=== PATIENT | female | born 1980 | race Caucasian/White ===

== ENCOUNTER 2019-04-27 15:25 | Emergency (ER) | payer OTHER ==
[~2019-04-27] VITALS: Ht 162.6 cm; Wt 75.0 kg
[~2019-04-27 15:25] MED LIST: BUSPAR5 MG PO; DEPO-PROVER150 MG/ML IM; IBUPROFEN600 MG PO; PERCOCET 5-3251 TAB PO
[2019-04-27 15:33] VITALS: Ht 162.6 cm; Wt 75.0 kg
[2019-04-27 17:19] LABS: BASOPHILS 0.1 % (0-2); HEMATOCRIT 39.9 % (36.0-48.0); HEMOGLOBIN 13.5 g/dL (12-16); IMMATURE GRANULOCYTES 0.2 % (0-5); LYMPHOCYTES 26.2 % (15-50); MCH 30.3 pg (26.0-34.0); MCHC 33.8 g/dL (31.0-37.0); MCV 89.5 fL (80.0-100.0); MEAN PLATELET VOLUME 10.5 fL (7.4-10.4); MONOCYTES 7.5 % (2-11); PLATELET COUNT 222 10x3/uL (130-400); RBC 4.46 10x6/uL (4.00-5.40); RDW 13.5 % (11.5-14.5); WBC 9.8 10x3/uL (4.8-10.8)
[2019-04-27 17:26] LABS: APPEARANCE CLEAR (CLEAR); BILIRUBIN NEGATIVE (NEGATIVE); COLOR YELLOW (YELLOW); GLUCOSE NEGATIVE (NEGATIVE); HCG URINE NEGATIVE (NEGATIVE); KETONE NEGATIVE (NEGATIVE); NITRITE NEGATIVE (NEGATIVE); PROTEIN NEGATIVE (NEGATIVE); SPECIFIC GRAVITY 1.025 (1.005-1.020); UROBILINOGEN NORMAL (NORMAL)
[2019-04-27 17:34] LABS: ALBUMIN 3.4 g/dL (3.4-5.0); ALKALINE PHOSPHATASE 74 U/L (46-116); ALT (SGPT) 19 U/L (10-68); BILIRUBIN - TOTAL 0.22 mg/dL (0.2-1.3); CALC OSMOLALITY 279 mosm/kg (275-300); CALCIUM 8.4 mg/dL (8.5-10.1); CARBON DIOXIDE 28.3 mmol/L (21.0-32.0); CHLORIDE - SERUM 105 mmol/L (98-107); CREATININE - SERUM 0.7 mg/dL (0.6-1.3); GLUCOSE 85 mg/dL (74-106); POTASSIUM - SERUM 3.8 mmol/L (3.5-5.1); PROTEIN - SERUM 6.6 g/dL (6.4-8.2); SODIUM 141 mmol/L (136-145); UREA NITROGEN 13 mg/dL (7-18); eGFR NON AFRICAN AMERICAN > 90 mL/min (90-120)
[2019-04-27] MEDS ORDERED: VOLTAREN75 MG PO (19:10)
[2019-04-27 19:48] VITALS: BP 128/96
== END 2019-04-27 21:28 | disposition home or self-care (01) ==
LOC: D.ER 15:25
PROVIDERS: Family Medicine
DX: N64.4 Mastodynia (principal)

== ENCOUNTER 2019-10-25 22:17 | Emergency (ER) | payer OTHER ==
[~2019-10-25] VITALS: Ht 162.6 cm; Wt 72.7 kg
[~2019-10-25 22:17] MED LIST changes: +VOLTAREN75 MG PO
[2019-10-25 22:44] VITALS: Ht 162.6 cm; Wt 72.7 kg
[2019-10-25 23:23] LABS: APPEARANCE CLEAR (CLEAR); BILIRUBIN NEGATIVE (NEGATIVE); COLOR YELLOW (YELLOW); GLUCOSE NEGATIVE (NEGATIVE); HCG URINE NEGATIVE (NEGATIVE); KETONE NEGATIVE (NEGATIVE); NITRITE NEGATIVE (NEGATIVE); PROTEIN NEGATIVE (NEGATIVE); SPECIFIC GRAVITY 1.015 (1.005-1.020); UROBILINOGEN NORMAL (NORMAL)
[2019-10-25 23:25] LABS: BACTERIA FEW /hpf (NEGATIVE); EPITHELIAL CELLS 0-5 /hpf (0-5); RED CELLS - URINE 0-5 /hpf (0-5); WHITE CELLS - URINE 0-5 /hpf (NEGATIVE)
[2019-10-25] MEDS ORDERED: BENTYL 20 MG TA20 MG PO (23:37)
[2019-10-25] MEDS ORDERED: FLAGYL500 MG PO (23:37)
[2019-10-25] MEDS ORDERED: PROTONIX40 MG PO (23:37)
[2019-10-26 00:29] VITALS: BP 132/75
== END 2019-10-26 00:29 | disposition home or self-care (01) ==
LOC: D.ER 22:17
PROVIDERS: Emergency Medicine
DX: N39.0 Urinary tract infection, site not specified (principal); R11.0 Nausea; R51 Headache

== ENCOUNTER 2020-01-07 04:41 | Emergency (ER) | payer OTHER ==
[~2020-01-07] VITALS: Ht 162.6 cm; Wt 75.0 kg
[~2020-01-07 04:41] MED LIST changes: +BENTYL 20 MG TA20 MG PO; +FLAGYL500 MG PO; +PROTONIX40 MG PO
[2020-01-07 04:46] VITALS: Ht 162.6 cm; Wt 75.0 kg
[2020-01-07 05:12] LABS: BASOPHILS 0.1 % (0-2); EOSINOPHILS 0.6 % (0-7); HEMATOCRIT 43.3 % (36.0-48.0); IMMATURE GRANULOCYTES 0.6 % (0-5); LYMPHOCYTES 21.2 % (15-50); MCH 29.9 pg (26.0-34.0); MCHC 32.3 g/dL (31.0-37.0); MCV 92.3 fL (80.0-100.0); MEAN PLATELET VOLUME 9.8 fL (7.4-10.4); MONOCYTES 7.8 % (2-11); NEUTROPHILS 69.7 % (40-80); PLATELET COUNT 262 10x3/uL (130-400); RBC 4.69 10x6/uL (4.00-5.40); RDW 14.7 % (11.5-14.5); WBC 10.2 10x3/uL (4.8-10.8)
[2020-01-07 05:16] LABS: CALC OSMOLALITY 278 mosm/kg (275-300); CALCIUM 8.8 mg/dL (8.5-10.1); CHLORIDE - SERUM 104 mmol/L (98-107); CREATININE - SERUM 0.7 mg/dL (0.6-1.3); GLUCOSE 104 mg/dL (74-106); POTASSIUM - SERUM 3.4 mmol/L (3.5-5.1); SODIUM 140 mmol/L (136-145); UREA NITROGEN 13 mg/dL (7-18); eGFR NON AFRICAN AMERICAN > 90 mL/min (90-120)
[2020-01-07 05:46] LABS: ALBUMIN 3.6 g/dL (3.4-5.0); ALKALINE PHOSPHATASE 64 U/L (30-120); ALT (SGPT) 44 U/L (10-68); BILIRUBIN - TOTAL 0.31 mg/dL (0.2-1.3); HCG - QUANTITATIVE (MATERNAL) 8284 mIU/mL; LIPASE 108 U/L (73-393); PROTEIN - SERUM 7.2 g/dL (6.4-8.2)
[2020-01-07 07:16] VITALS: BP 128/69
== END 2020-01-07 07:17 | disposition home or self-care (01) ==
LOC: D.ER 04:41
PROVIDERS: Family Medicine
DX: O34.11 Maternal care for benign tumor of corpus uteri, first trimester (principal); Z3A.01 Less than 8 weeks gestation of pregnancy; D25.9 Leiomyoma of uterus, unspecified